=== PATIENT | male | born 1980 | race Caucasian/White ===

== ENCOUNTER 2024-06-11 12:14 | Emergency (ER) | payer MEDICAID, SELFPAY ==
[2024-06-11 12:15] VITALS: BMI 31.1
[2024-06-11 12:57] VITALS: BP 123/78; PULSE 77; RESP 19; TEMP 36.9; O2SAT 98
--- NOTE | 2024-06-11 13:04 | XR_ITS ---
Examination: Fingers, left hand second digit 3 views Technique: AP, oblique, lateral views left hand second digit 3 views. Exam date and time: June 11, 2024 1318 hours INDICATIONS: Injured the hand today with second digit pain. FINDINGS: Soft tissue swelling about the distal phalanx second digit No fracture No foreign body IMPRESSION: No fracture or dislocation
--- NOTE | 2024-06-11 14:13 | EDNOTE_ITS ---
Upper Extremity Injury RME/HPI General Chief Complaint: Hand/Wrist Problems Stated Complaint: LEFT INDEX FINGER LACERATION Time Seen by Provider: 06/11/24 12:35 Arrival date/time: 06/11/24 12:14 43-year-old male presents to the emergency department today stating he was chopping wood accidentally injured his left index finger patient obtained a laceration to the distal aspect of left index finger Limitations: no limitations Related Data Home Medications ?Medication ?Instructions ?Recorded ?Confirmed diclofenac sodium 50 mg 50 mg PO TID 01/02/18 01/02/18 tablet,delayed release loratadine 10 mg tablet 10 mg PO QDAY 01/02/18 01/02/18 Previous Rx's ?Medication ?Instructions ?Recorded carisoprodol 350 mg tablet (Soma) 350 mg PO TID #10 tabs 01/02/18 ibuprofen 600 mg tablet (IBU) 600 mg PO TID #20 tabs 01/02/18 cephalexin 500 mg capsule 500 mg PO BID 7 days #14 caps 06/11/24 ibuprofen 600 mg tablet 600 mg PO Q6H #30 tabs 06/11/24 Allergies Allergy/AdvReac Type Severity Reaction Status Date / Time No Known Allergies Allergy Verified 06/11/24 12:17 Review of Systems Review of Systems Systems Reviewed: All systems reviewed, normal except as documented Constitutional Constitutional: Reports system reviewed and no additional complaints, except as documented, Denies fever(s) and Denies headache(s) Eyes Eyes: Reports system reviewed and no additional complaints, except as documented and Denies blurry vision ENT Ears, Nose, Mouth, and Throat: Reports system reviewed and no additional complaints, except as documented, Denies headache(s), Denies nasal congestion and Denies nasal discharge Cardiovascular Cardiovascular: Reports system reviewed and no additional complaints, except as documented, Denies chest pain and Denies dyspnea Respiratory Respiratory: Reports system reviewed and no additional complaints, except as documented, Denies chest congestion, Denies cough and Denies dyspnea Gastrointestinal Gastrointestinal: Reports system reviewed and no additional complaints, except as documented and Denies abdominal pain Integumentary/Breasts Skin/Breast: Reports system reviewed and no additional complaints, except as documented, Denies rash and Reports wounds (lac left index finger ) Neurologic Neurologic: Reports system reviewed and no additional complaints, except as documented, Reports as per HPI and Denies headache(s) Past Medical History Past Medical History CARDIAC: Negative Congestive Heart Failure RESPIRATORY: Negative Chronic Obstructive Pulmonary Disease (COPD) GENITOURINARY: Negative Renal Disease ENDOCRINE: Negative Diabetes Mellitus Type 1 or Diabetes Mellitus Type 2 Social History SMOKING STATUS: Current every day smoker ED Exam General Limitations: Present no limitations General appearance: Present alert and in no apparent distress Head Head exam: Present atraumatic Eye Eye exam: Present normal appearance, PERRL and EOMI ENT ENT exam: Present normal exam, normal oropharynx and mucous membranes moist Neck Neck exam: Present normal inspection, full ROM and trachea midline Chest Chest inspection: Present normal inspection and symmetric chest wall rise Respiratory Respiratory exam: Present normal lung sounds bilaterally Cardiovascular Cardiovascular exam: Present regular rate, normal rhythm and normal heart sounds Abdominal Exam Abdominal exam: Present soft and normal bowel sounds Extremities Exam Extremities exam: Present full ROM, tenderness and normal capillary refill Back Exam Back exam: Present normal inspection and full ROM Neurological Exam Neurological exam: Present alert, oriented X3 and CN II-XII intact Psychiatric Psychiatric exam: Present normal affect and normal mood Skin Skin exam: Present warm, dry, intact and other (lace left index finger ) Course Quality Measures none Orders Category Date Time Status Set Up Suture Tray STAT Care 06/11/24 13:04 Completed Wound Care NOW Care 06/11/24 13:04 Completed XR finger LT min 2V Stat Exams 06/11/24 13:04 Completed Ibuprofen Tab [Motrin Tab] Med 06/11/24 13:04 Discontinued 800 mg PO X1 ONE Lidocaine 1% 20 ml [Xylocaine 1% 20 ML] Med 06/11/24 13:04 Discontinued 20 ml INFL X1 ONE Tet,Diphth,Pertuss(Acell)-Tdap [Boostrix Vacc] Med 06/11/24 13:04 Discontinued 0.5 ml IMI .ONCE ONE Vital Signs Vital signs: Vital Signs Temperature 98.4 F 06/11/24 12:57 Pulse Rate 77 06/11/24 12:57 Respiratory Rate 19 06/11/24 12:57 Blood Pressure 123/78 06/11/24 12:57 Pulse Oximetry (%) 98 06/11/24 12:57 Oxygen Delivery Method Room Air 06/11/24 12:57 O2 saturation 98% room air wnl Procedures -ED Laceration Laceration 1: Site: upper extremity Side (If applicable): left Size (cm): 3 Description: irregular Depth: simple, single layer Local Anesthetic: lidocaine 1% Amount of anesthesia used (mL): 8 Pre-repair: wound explored and irrigated extensively Skin layer closed with: nylon Size (cm): 5-0 Number of sutures: 8 Technique: simple, interrupted Extremity Injury MDM Narrative MDM Narrative:: 43-year-old male presents to the emergency department today stating he was chopping wood accidentally injured his left index finger patient obtained a laceration to the distal aspect of left index finger On exam patient is laceration left index finger wound irrigated copiously laceration repaired Laceration closed 8 sutures there is no evidence of tendon ligamentous injury Patient discharged home in no distress to follow-up with primary care doctor in the next 24 to 48 hours and for any worsening symptoms to return to the ER immediately Patient data External records reviewed:: [facility] previous records Clinical information provided by:: patient Social determinants that could affect healthcare access:: none Patient has the following chronic illnesses:: none How is presenting disease/condition affected by chronic disease/condition?: no chronic disease Evaluation data The following diagnostics were reviewed and interpreted by me:: radiology exam(s) (Radiology obtained) Lab and/or radiology exams considered but not ordered:: Reviewed by me Interpretation Summary: Given Medications / Prescriptions Medications or Prescriptions considered but not ordered:: Given Medication administrations:: Medication Administration History Discontinued Medications Diphtheria/Tetanus/Acell Pertussis (Diphth,Pertuss(Acell),Tet Vac 0.5 Ml Vial) 0.5 ml IMi .ONCE ONE Stop: 06/11/24 13:05 Last Admin: 06/11/24 14:42 Dose: 0.5 ml Documented By: Ibuprofen (Ibuprofen Tab 400 Mg Tablet) 800 mg PO X1 ONE Stop: 06/11/24 13:05 Last Admin: 06/11/24 14:42 Dose: 800 mg Documented By: Lidocaine HCl (Lidocaine Hcl 1% 20 Ml Vial) 20 ml INFL X1 ONE Stop: 06/11/24 13:05 Last Admin: 06/11/24 14:42 Dose: 20 ml Documented By: Given Consultations Consultation(s) initiated? (list below): No Diagnosis Upper Extremity Injury Differential Diagnosis: other (Finger sprain finger fracture) Most likely diagnosis given after review of the tests above:: Laceration Admission Indicated Admission indicated?: not indicated Admission Request Was there a request for admission?: No Disposition Plan Disposition Plan: Discharge Discharge Attestation Discharge Attestation: The patient and all family members were given an opportunity to ask questions and understood the discharge instructions. Discharge instructions specifically effects, indications for sooner follow up or return to the emergency department, and the expected course of current diagnosis. Patient condition: Stable Discharge Plan Plan Patient Disposition: HOME (Self Care) Disposition Comment: Stable Prescriptions/Referrals Prescriptions/Med Rec: New cephalexin 500 mg capsule 500 mg PO BID 7 Days Qty: 14 0RF ibuprofen 600 mg tablet 600 mg PO Q6H Qty: 30 0RF No Action diclofenac sodium 50 mg Tablet,Delayed Release (Dr/Ec) 50 mg PO TID loratadine 10 mg Tablet 10 mg PO QDAY ibuprofen [IBU] 600 mg tablet 600 mg PO TID Qty: 20 0RF carisoprodol [Soma] 350 mg tablet 350 mg PO TID Qty: 10 0RF Referrals: Marvin Cotto, [employer] [Primary Care Provider] - In 1 week Problem List Clinical Impression: Laceration of right index finger Patient/Caregiver Discharge Instructions Education Materials: ED Laceration: All Closures Additional Instructions: Please follow up with your primary care doctor in the next 24-48hrs for any worsening symptoms return here immediately Please have sutures removed in 10 days Print Language: Belarusian Stand Alone Forms: Rosalba Award Info., Patient Portal Info Letter Vaccines Vaccines Given During Stay: TDaP PA/CONSTRUCTION SALES REPRESENTATIVE Supervising Physician EZ/CONSTRUCTION SALES REPRESENTATIVE Supervising Physician: Dr. Goetz
[2024-06-11] MEDS: LIDOCAINE HCL 1% 20 ML VIAL INFL (14:42)
[2024-06-11] MEDS: IBUPROFEN TAB 400 MG TABLET 800 MG PO (14:42)
[2024-06-11] MEDS: DIPHTH,PERTUSS(ACELL),TET VAC 0.5 ML VIAL IMi (14:42)
== END 2024-06-11 14:43 | disposition home or self-care (01) ==
PROVIDERS: Emergency Provider Emergency Medicine; PCP Nurse Practitioner Family
DX: S61.210A Laceration without foreign body of right index finger without damage to nail, initial encounter (principal); X58.XXXA Exposure to other specified factors, initial encounter; Y93.89 Activity, other specified; Z23 Encounter for immunization
CPT/HCPCS: 12002; 73140; 90471; 90715; 99283; J3490; A9270